=== PATIENT | female | born 1980 | race Caucasian/White ===

== ENCOUNTER 2020-03-25 12:39 | Emergency (ER) | payer SELFPAY ==
--- NOTE | 2020-03-25 14:40 | EDPHYS ---
Physician Documentation [facility] Name: Myriam Scruggs Age: 40 yrs Sex: Female : 1980 Arrival Date: 03/25/2020 Time: 12:48 Bed 20 Private MD: ED Physician Ghulam Caballero HPI: 03/25 13:24 This 40 yrs old Female presents to ER via EMS with complaints of vomiting. [facility] 13:24 Onset: The symptoms/episode began/occurred acutely, yesterday. This is a 40 year old m female with a history of kidney stones that presents to the ED with no complaints. Patient states that yesterday he developed acute episode of vomiting and did not feel well. Patient states she felt better today. There was concern due to reported hallucinations. Patient currently denies HI, SI, hallucinations, command hallucinations. Denies abdominal pain, chest pain, shortness of breath, vomiting. . 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 - Social history:: Smoking status: Patient reports the use of cigarette tobacco products, denies chronic smoking, but will smoke occasionally. ROS: 13:24 Constitutional: Negative for fever, chills, and weight loss, Cardiovascular: Negative [facility] for chest pain, palpitations, and edema, Respiratory: Negative for shortness of breath, cough, wheezing, and pleuritic chest pain, Abdomen/GI: Negative for abdominal pain, nausea, vomiting, diarrhea, and constipation, Back: Negative for injury and pain, Neuro: Negative for headache, weakness, numbness, tingling, and seizure, Psych: Negative for depression, anxiety, suicide ideation, homicidal ideation, and hallucinations. 13:24 All other systems are negative. Exam: 13:24 Constitutional: This is a well developed, well nourished patient who is awake, alert, jmm and in no acute distress. Head/Face: atraumatic. Eyes: EOMI, no conjunctival erythema appreciated ENT: Moist Mucus Membranes Neck: Trachea midline, Supple Chest/axilla: Normal chest wall appearance and motion. Cardiovascular: Regular rate and rhythm. No edema appreciated Respiratory: Normal respirations, no respiratory distress appreciated Abdomen/GI: Non distended, soft Back: Normal ROM Skin: General appearance color normal MS/ Extremity: Moves all extremities, no obvious deformities appreciated, no edema noted to the lower extremities Neuro: Awake and alert, normal gait Psych: Behavior is normal, Mood is normal, Patient is cooperative and pleasant 13:24 Abdomen/GI: Inspection: abdomen appears normal, Bowel sounds: normal, Palpation: abdomen is soft and non-tender. 13:24 Back: CVA tenderness, is absent, is noted bilaterally. Vital Signs: 12:48 BP 127 / 91; Pulse 74; Resp 18; Temp 98.1(O); Pulse Ox 100% on R/A; Weight 81.65 kg; em Height 5 ft. 4 in. (162.56 cm); Pain 0/10; 12:48 Body Mass Index 30.90 (81.65 kg, 162.56 cm) em MDM: 13:16 Patient medically screened. [facility] 14:36 Data reviewed: vital signs, nurses notes. Counseling: I had a detailed discussion with rolando the patient and/or guardian regarding: the historical points, exam findings, and any diagnostic results supporting the discharge/admit diagnosis, lab results, the need for outpatient follow up, to return to the emergency department if symptoms worsen or persist or if there are any questions or concerns that arise at home. ED course: Patient is alert and non toxic in appearance. UA reveals signs of infection. Will treat with abx. Patient is otherwise given strict return precautions. No SI, No HI, No admitted hallucinations. . 03/25 14:00 Order name: Urine Dipstick--Ancillary (enter results) 03/25 14:00 Order name: Urine --Ancillary (enter results) 03/25 13:31 Order name: Urine Dipstick-Ancillary (obtain specimen); Complete Time: 13:55 rolando Administered Medications: No medications were administered Disposition: 15:14 Co-signature as Attending Physician, Ghulam Caballero MD. rn Disposition: 03/25/20 14:39 Discharged to Home. Impression: Urinary tract infection, site not specified. - Condition is Stable. - Discharge Instructions: Urinary Tract Infection, Adult. - Prescriptions for Macrobid 100 mg Oral Capsule - take 1 capsule by ORAL route every 12 hours for 7 days; 14 capsule. - Medication Reconciliation Form, Thank You Letter, Antibiotic Education, Prescription Opioid Use form. - Follow up: Private Physician; When: 2 - 3 days; Reason: Recheck today's complaints, Continuance of care, Re-evaluation by your physician. Signatures: Dispatcher [employer] EDSander Cazares PA PA jmm Munoz, Edgar, RN RN Ghulam Carrillo MD MD rn Acob, PEYTON Billy RN ca1 Corrections: (The following items were deleted from the chart) 14:46 14:39 03/25/2020 14:39 Discharged to Home. Impression: Urinary tract infection, site ca1 not specified. Condition is Stable. Forms are Medication Reconciliation Form, Thank You Letter, Antibiotic Education, Prescription Opioid Use. Follow up: Private Physician; When: 2 - 3 days; Reason: Recheck today's complaints, Continuance of care, Re-evaluation by your physician. rolando
--- NOTE | 2020-03-25 14:40 | ER ---
Nurse's Notes [facility] Name: Myriam Scruggs Age: 40 yrs Sex: Female : 1980 Arrival Date: 03/25/2020 Time: 12:48 Bed 20 Private MD: Diagnosis: Urinary tract infection, site not specified Presentation: 03/25 12:48 Chief complaint: EMS states: called out for possible sepsis, pt has hx of kidney em stones, symptoms started 2 weeks ago, pt reported pt has episodes of psychosis, was hearing/seeing things, EMT's have not witnessed any episodes, pt currently denies pain, SI/HI, or urinary symptoms. Coronavirus screen: Proceed with normal triage. Patient denies a cough. Patient denies shortness of breath or difficulty breathing. Patient denies measured and/or subjective temperature greater than 100.4F prior to today's visit. Patient denies travel on a cruise ship or to a country the [facility] currently lists as an affected area. Patient denies contact with known and/or suspected case of COVID-19. Ebola Screen: Patient negative for fever greater than or equal to 101.5 degrees Fahrenheit, and additional compatible Ebola Virus Disease symptoms Patient denies exposure to infectious person. Patient denies travel to an Ebola-affected area in the 21 days before illness onset. No symptoms or risks identified at this time. Initial Sepsis Screen: Does the patient meet any 2 criteria? No. Patient's initial sepsis screen is negative. Does the patient have a suspected source of infection? No. Patient's initial sepsis screen is negative. Risk Assessment: Do you want to hurt yourself or someone else? Patient reports no desire to harm self or others. Onset of symptoms was March 11, 2020. 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 - Social history:: Smoking status: Patient reports the use of cigarette tobacco products, denies chronic smoking, but will smoke occasionally. Screenin:48 Abuse screen: Denies threats or abuse. Nutritional screening: No deficits noted. em Tuberculosis screening: No symptoms or risk factors identified. Fall Risk None identified. Assessment: 12:48 General: Appears in no apparent distress. comfortable, Behavior is calm, cooperative, em appropriate for age, Denies fever. Pain: Denies pain. Neuro: Level of Consciousness is awake, alert, obeys commands, Oriented to person, place, time, situation, Appropriate for age. Cardiovascular: Capillary refill < 3 seconds Patient's skin is warm and dry. Respiratory: Airway is patent Respiratory effort is even, unlabored, Respiratory pattern is regular, symmetrical. GI: Abdomen is flat. : Denies burning with urination. Derm: Skin is intact, is healthy with good turgor, Skin is pink, warm \T\ dry. Musculoskeletal: Capillary refill < 3 seconds, Range of motion: intact in all extremities. 14:00 Reassessment: Patient appears in no apparent distress at this time. Patient and/or em family updated on plan of care and expected duration. Pain level reassessed. Patient is alert, oriented x 3, equal unlabored respirations, skin warm/dry/pink. Vital Signs: 12:48 BP 127 / 91; Pulse 74; Resp 18; Temp 98.1(O); Pulse Ox 100% on R/A; Weight 81.65 kg; em Height 5 ft. 4 in. (162.56 cm); Pain 0/10; 12:48 Body Mass Index 30.90 (81.65 kg, 162.56 cm) em ED Course: 12:48 Patient arrived in ED. em 12:48 Patient has correct armband on for positive identification. Bed in low position. Call em light in reach. Side rails up X2. Adult w/ patient. Pulse ox on. NIBP on. 12:53 Triage completed. em 12:54 Bebo Flood, RN is Primary Nurse. em 12:54 Arm band placed on. em 12:57 Sander Ayers PA is PHCP. [facility] 12:57 Ghulam Caballero MD is Attending Physician. [facility] 14:44 No provider procedures requiring assistance completed. Patient did not have IV access ca1 during this emergency room visit. Administered Medications: No medications were administered Outcome: 14:39 Discharge ordered by . rolando 14:44 Discharged to home ambulatory. ca1 14:44 Condition: stable 14:44 Discharge instructions given to patient, Instructed on discharge instructions, follow up and referral plans. medication usage, Demonstrated understanding of instructions, follow-up care, medications, Prescriptions given X 1. 14:46 Patient left the ED. ca1 Signatures: Sander Ayers PA PA jmm Munoz, Edgar RN RN em Mariajose Musa RN RN ca1
[2020-03-25 14:47] LABS: Urine Blood TRACE (NEG); Urine Glucose NEGATIVE (NEG); Urine Protein 1+ (NEG); Urine Specific Gravity 1.025 (1.005-1.030)
[2020-03-25 14:59] VITALS: BP 127/91; TEMP 98.1; O2SAT 100
== END 2020-03-25 14:46 | disposition home or self-care (01) ==
LOC: ER 12:39
DX: N39.0 Urinary tract infection, site not specified (principal); F17.210 Nicotine dependence, cigarettes, uncomplicated; Z88.0 Allergy status to penicillin
CPT/HCPCS: 81003; 81025; 99283

== ENCOUNTER 2020-04-26 15:35 | Emergency (ER) | payer SELFPAY ==
[2020-04-26] MEDS ORDERED: MAGNE/ALUM HYDROXD 30 ML UCUP ONE (17:26)
[2020-04-26] MEDS ORDERED: LIDOCAINE VISCOUS 2% SOLN 15 ML UDC ONE (17:26)
[2020-04-26 17:52] LABS: Urine Blood NEGATIVE (NEG); Urine Glucose NEGATIVE (NEG); Urine Protein NEGATIVE (NEG); Urine pH 6.5 (5.0-7.0)
[2020-04-26 18:19] LABS: ALT/SGPT 15 U/L (12-78); Albumin 4.2 g/dL (3.4-5.0); Alkaline Phosphatase 95 U/L (45-117); BUN Blood Urea Nitrogen 10 mg/dL (7-18); Bicarbonate 23 mmol/L (21-32); Bilirubin Direct 0.1 mg/dL (0-0.2); Bilirubin Total 0.5 mg/dL (0.2-1.0); Glucose Level 94 mg/dL (74-106); Lipase 111 U/L (73-393); Protein, Total 8.1 g/dL (6.4-8.2); Sodium Level 140 mmol/L (136-145)
[2020-04-26 18:20] LABS: AST/SGOT 18 U/L (15-37); Potassium 3.9 mmol/L (3.5-5.1)
[2020-04-26 18:20] LABS: Absolute Lymphocytes (CBC) 2.4 K/uL (0.7-4.9); Hematocrit 37.7 % (36.0-45.0); Lymphocytes % 31.3 % (15.3-44.8); MPV 8.8 fL (7.6-11.3); RBC Red Blood Cell Count 3.98 M/uL (3.86-4.86)
--- NOTE | 2020-04-26 19:11 | ER ---
Nurse's Notes [facility] Name: Myriam Scruggs Age: 40 yrs Sex: Female : 1980 Arrival Date: 04/26/2020 Time: 15:37 Bed 27 Private MD: Diagnosis: Epigastric pain;Gastritis, unspecified Presentation: 04/26 16:01 Chief complaint: Patient states: Epigastric pain couple days. Has history of kidney ca1 stones. Reports nausea. Denies vomiting and diarrhea. Coronavirus screen: Client denies travel out of the [place] in the last 14 days. At this time, the client does not indicate any symptoms associated with coronavirus-19. Ebola Screen: Patient negative for fever greater than or equal to 101.5 degrees Fahrenheit, and additional compatible Ebola Virus Disease symptoms Patient denies exposure to infectious person. Patient denies travel to an Ebola-affected area in the 21 days before illness onset. No symptoms or risks identified at this time. Initial Sepsis Screen: Does the patient meet any 2 criteria? No. Patient's initial sepsis screen is negative. Does the patient have a suspected source of infection? No. Patient's initial sepsis screen is negative. Risk Assessment: Do you want to hurt yourself or someone else? Patient reports no desire to harm self or others. Onset of symptoms was April 26, 2020. 16:01 Method Of Arrival: Ambulatory ca1 16:01 Acuity: GISELE 3 ca1 Triage Assessment: 16:10 General: Appears in no apparent distress. comfortable, Behavior is cooperative, bp appropriate for age, anxious. Pain: Complains of pain in epigastric area. EENT: No deficits noted. Neuro: No deficits noted. Cardiovascular: No deficits noted. Respiratory: No deficits noted. GI: Reports epigastric pain. : No deficits noted. Derm: No deficits noted. Musculoskeletal: No deficits noted. 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 - Social history:: Smoking status: Patient reports the use of cigarette tobacco products, smokes one-half pack cigarettes per day. Screenin:10 Abuse screen: Denies threats or abuse. Denies injuries from another. Nutritional bp screening: No deficits noted. Tuberculosis screening: No symptoms or risk factors identified. Fall Risk None identified. Assessment: 16:10 General: SEE TRIAGE NOTE. bp 16:14 Reassessment: Mother: [phone]. ca1 17:44 Reassessment: PT STATES MARKED RELIEF OF S/S AFTER GI COCKTAIL. bp 18:09 Reassessment: LABS REDRAWN AND SENT. VS STABLE ON MONITOR. bp 19:20 Reassessment: Patient is alert, oriented x 3, equal unlabored respirations, skin lp1 warm/dry/pink. Provider at bedside to give discharge instructions; Patient demonstrates understanding. Vital Signs: 16:01 BP 134 / 99; Pulse 71; Resp 15 S; Temp 98.7(O); Pulse Ox 100% on R/A; Height 5 ft. 6 ca1 in. (167.64 cm) (R); 18:08 BP 126 / 93; Pulse 70; Resp 16; Pulse Ox 100% ; bp 19:21 BP 130 / 95; Pulse 85; Resp 18; Pulse Ox 100% on R/A; lp1 ED Course: 15:37 Patient arrived in ED. ag5 16:03 Triage completed. ca1 16:04 Arm band placed on right wrist. ca1 16:05 Leif Lindsay, RN is Primary Nurse. bp 16:10 Patient has correct armband on for positive identification. Bed in low position. Call bp light in reach. Side rails up X2. 16:52 Feliberto Barton [facility] is [facility]. jr8 16:52 Ghulam Caballero MD is Attending Physician. jr8 17:30 Inserted saline lock: 20 gauge in right forearm, using aseptic technique. Blood bp collected. 19:10 Morteza Victoria MD is Referral Physician. jr8 19:19 No provider procedures requiring assistance completed. IV discontinued, No lp1 redness/swelling at site. Pressure dressing applied. Administered Medications: 17:30 Drug: GI Cocktail without - (Maalox Suspension 30 ml, Lidocaine Liquid 2 % 15 bp ml) Route: PO; 17:44 Follow up: Response: Marked relief of symptoms bp Outcome: 19:11 Discharge ordered by . jr8 19:20 Discharged to home ambulatory. lp1 19:20 Condition: good 19:20 Discharge instructions given to patient, Instructed on discharge instructions, follow up and referral plans. medication usage, Demonstrated understanding of instructions, follow-up care, medications, Prescriptions given X 1. 19:21 Patient left the ED. lp1 Signatures: Arti Coronel RN RN lp1 Feliberto Barton PA PA jr8 Leif Lindsay RN RN bp Mariajose Musa RN RN ca1 Eloy Jerry ag5 Corrections: (The following items were deleted from the chart) 16:25 16:11 Chief complaint: Parent and/or Guardian states: Mother: She has been diagnosed of ca1 UTI a month ago. Did not take her abx and thrown them away. She has been disoriented a few days ago, some hallucinations, and delusions ca1
--- NOTE | 2020-04-26 19:11 | EDPHYS ---
Physician Documentation [facility] Name: Myriam Scruggs Age: 40 yrs Sex: Female : 1980 Arrival Date: 04/26/2020 Time: 15:37 Bed 27 Private MD: ED Physician Ghulam Caballero HPI: 04/26 19:16 This 40 yrs old Female presents to ER via Ambulatory with complaints of jr8 Abdominal Pain. 19:16 The patient presents with abdominal pain in the epigastric area. Onset: The jr8 symptoms/episode began/occurred gradually, 3 day(s) ago. The symptoms do not radiate. Associated signs and symptoms: Pertinent positives: nausea. The symptoms are described as sharp. Modifying factors: The symptoms are alleviated by nothing, the symptoms are aggravated by nothing. Severity of pain: At its worst the pain was moderate in the emergency department the pain is unchanged. The patient has not experienced similar symptoms in the past. The patient has not recently seen a physician. 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 - Social history:: Smoking status: Patient reports the use of cigarette tobacco products, smokes one-half pack cigarettes per day. ROS: 19:16 Eyes: Negative for injury, pain, redness, and discharge, ENT: Negative for injury, jr8 pain, and discharge, Neck: Negative for injury, pain, and swelling, Cardiovascular: Negative for chest pain, palpitations, and edema, Respiratory: Negative for shortness of breath, cough, wheezing, and pleuritic chest pain, Back: Negative for injury and pain, MS/Extremity: Negative for injury and deformity, Skin: Negative for injury, rash, and discoloration, Neuro: Negative for headache, weakness, numbness, tingling, and seizure. 19:16 Abdomen/GI: Positive for abdominal pain, nausea, Negative for vomiting, diarrhea, constipation, abdominal cramps, abdominal distension, hematemesis, black/tarry stool, rectal pain, rectal bleeding, bowel incontinence, flatulence. Exam: 19:16 Eyes: Pupils equal round and reactive to light, extra-ocular motions intact. Lids and jr8 lashes normal. Conjunctiva and sclera are non-icteric and not injected. Cornea within normal limits. Periorbital areas with no swelling, redness, or edema. ENT: Nares patent. No nasal discharge, no septal abnormalities noted. Tympanic membranes are normal and external auditory canals are clear. Oropharynx with no redness, swelling, or masses, exudates, or evidence of obstruction, uvula midline. Mucous membranes moist. Neck: Trachea midline, no thyromegaly or masses palpated, and no cervical lymphadenopathy. Supple, full range of motion without nuchal rigidity, or vertebral point tenderness. No Meningismus. Cardiovascular: Regular rate and rhythm with a normal S1 and S2. No gallops, murmurs, or rubs. Normal PMI, no JVD. No pulse deficits. Respiratory: Lungs have equal breath sounds bilaterally, clear to auscultation and percussion. No rales, rhonchi or wheezes noted. No increased work of breathing, no retractions or nasal flaring. Back: No spinal tenderness. No costovertebral tenderness. Full range of motion. Skin: Warm, dry with normal turgor. Normal color with no rashes, no lesions, and no evidence of cellulitis. MS/ Extremity: Pulses equal, no cyanosis. Neurovascular intact. Full, normal range of motion. Neuro: Awake and alert, GCS 15, oriented to person, place, time, and situation. Cranial nerves II-XII grossly intact. Motor strength 5/5 in all extremities. Sensory grossly intact. Cerebellar exam normal. Normal gait. 19:16 Abdomen/GI: Inspection: abdomen appears normal, Bowel sounds: active, all quadrants, Palpation: soft, in all quadrants, mild abdominal tenderness, in the epigastric area, mass, is not appreciated, rebound tenderness, is not appreciated, voluntary guarding, is not appreciated, involuntary guarding, is not appreciated, no appreciated organomegaly, Indicators: McBurney's point is not tender, Cash's sign is negative, Rovsing's sign is negative, Liver: tenderness, is not appreciated. Vital Signs: 16:01 BP 134 / 99; Pulse 71; Resp 15 S; Temp 98.7(O); Pulse Ox 100% on R/A; Height 5 ft. 6 ca1 in. (167.64 cm) (R); 18:08 BP 126 / 93; Pulse 70; Resp 16; Pulse Ox 100% ; bp 19:21 BP 130 / 95; Pulse 85; Resp 18; Pulse Ox 100% on R/A; lp1 MDM: 17:10 Patient medically screened. jr8 19:08 Data reviewed: vital signs, nurses notes, lab test result(s), and as a result, I will jr8 discharge patient. Data interpreted: Pulse oximetry: on room air is 100 %. Interpretation: normal. 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 Response to treatment: the patient's symptoms have resolved after treatment. ED course: Discussed with patient that her labs are without acute findings. Most likely gastritis vs. Peptic ulcer. Recommended f/u with GI for upper GI scope. Abdomen on exam benign upon palpation. Do not recommend CT at this time. Patient good with this and will f/u with GI . 04/26 16:52 Order name: Basic Metabolic Panel; Complete Time: 19:06 04/26 16:52 Order name: CBC with Diff; Complete Time: 19:06 04/26 16:52 Order name: Hepatic Function; Complete Time: 19:06 8 04/26 16:52 Order name: Lipase; Complete Time: 19:06 8 04/26 17:42 Order name: Urine Dipstick--Ancillary (enter results); Complete Time: 19:06 eb 04/26 16:52 Order name: IV Saline Lock; Complete Time: 17:43 8 04/26 16:52 Order name: Labs collected and sent; Complete Time: 17:44 jr8 04/26 16:57 Order name: Urine Dipstick-Ancillary (obtain specimen); Complete Time: 17:44 bp 04/26 17:10 Order name: EKG - Nurse/Tech; Complete Time: 17:41 jr04/26 17:49 Order name: Labs - recollect needed: please recollect the cbc its clotted; Complete eb Time: 18:08 Administered Medications: 17:30 Drug: GI Cocktail without - (Maalox Suspension 30 ml, Lidocaine Liquid 2 % 15 bp ml) Route: PO; 17:44 Follow up: Response: Marked relief of symptoms bp Disposition: 04/27 05:57 Co-signature as Attending Physician, Ghulam Caballero MD. rn Disposition: 04/26/20 19:11 Discharged to Home. Impression: Epigastric pain, Gastritis, unspecified. - Condition is Stable. - Discharge Instructions: Gastritis, Adult, Peptic Ulcer. - Prescriptions for sucralfate 1 gram Oral tablet - take 1 tablet by ORAL route 4 times per day on an empty stomach 1 hour before meals and at bedtime; 120 tablet. - Medication Reconciliation Form, Thank You Letter, Antibiotic Education, Prescription Opioid Use form. - Follow up: Morteza Victoria MD; When: 2 - 3 days; Reason: Recheck today's complaints, Continuance of care, Re-evaluation by your physician. - Problem is new. - Symptoms have improved. Signatures: Dispatcher [employer] EDMS Ghulam Caballero MD MD rn Pena, Laura RN RN lp1 Feliberto Barton PA PA jr8 Leif Lindsay RN PEYTON Yojana Crowley Cheryl, RN RN ca1 Corrections: (The following items were deleted from the chart) 04/26 19:21 19:11 04/26/2020 19:11 Discharged to Home. Impression: Epigastric pain; Gastritis, lp1 unspecified. Condition is Stable. Forms are Medication Reconciliation Form, Thank You Letter, Antibiotic Education, Prescription Opioid Use. Follow up: Morteza Victoria; When: 2 - 3 days; Reason: Recheck today's complaints, Continuance of care, Re-evaluation by your physician. Problem is new. Symptoms have improved. jr8
[2020-04-26 20:08] VITALS: TEMP 98.7; O2SAT 100
[2020-04-26 20:10] VITALS: BP 130/95
== END 2020-04-26 19:21 | disposition home or self-care (01) ==
LOC: ER 15:35
DX: K29.70 Gastritis, unspecified, without bleeding (principal); F17.210 Nicotine dependence, cigarettes, uncomplicated; Z87.442 Personal history of urinary calculi; Z88.0 Allergy status to penicillin
CPT/HCPCS: 36415; 80048; 80076; 81003; 83690; 85025; 93005; 99284